=== PATIENT | female | born 1960 | race Caucasian/White ===

== ENCOUNTER 2022-06-07 09:57 | Outpatient (CLI) | payer OTHER | END 2022-06-07 09:58 | disposition home or self-care (01) | LOC: CSHCT 09:57 | PROVIDERS: ATTEND Nurse Practitioner Family | DX: Z12.2 Encounter for screening for malignant neoplasm of respiratory organs (principal); F17.219 Nicotine dependence, cigarettes, with unspecified nicotine-induced disorders | CPT/HCPCS: 71271 ==

== ENCOUNTER 2022-08-19 13:28 | Outpatient (CLI) | payer OTHER | END 2022-08-19 13:29 | disposition home or self-care (01) | LOC: CSHCT 13:28 | PROVIDERS: ATTEND Surgery | DX: M47.12 Other spondylosis with myelopathy, cervical region (principal); M50.00 Cervical disc disorder with myelopathy, unspecified cervical region; M48.02 Spinal stenosis, cervical region | CPT/HCPCS: 72125 ==